=== PATIENT | female | born 1980 | race Caucasian/White ===

== ENCOUNTER → 2017-10-25 | Outpatient (CLI) | payer OTHER | LOC: FIMAGING 09:23 | PROVIDERS: ATTEND Physician Assistant Medical | DX: N83.11 Corpus luteum cyst of right ovary (principal) ==

== ENCOUNTER 2017-12-20 13:43 | Emergency (ER) | payer OTHER ==
[2017-12-20] MEDS ORDERED: NS 500 ML IV ONE (14:07)
[2017-12-20 14:31] LABS: PLATELET COUNT 261 10^3/uL (150-400)
[2017-12-20] MEDS ORDERED: IBUPROFEN 600 MG TAB PO ONE ×2 (15:10→15:12)
--- NOTE | 2017-12-20 15:15 | EDPHY ---
H & P Time Seen by Provider: 12/20/17 14:07 HPI/ROS: HPI Chest pain. 29-year-old female by private vehicle. This patient reports that she was jogging. She reports that while doing that she had sudden onset pain which she describes as being across her back. She describes it as sharp and across the mid to upper back beneath her shoulder blades. She reports that she stop running. She felt a little bit lightheaded. She reports that she started feeling better. She reports that she then started running again and then had pain radiating up from the right upper quadrant of her abdomen up through her right chest. This lasted 5-10 minutes and then subsided. She denies any associated shortness of breath. She had some mild nausea but no vomiting. No cough. No palpitations. She is not in any discomfort now and denies any shortness of breath at this time. She reports that she has had an issue with her gallbladder in the past but could not go into specifics. She does not have any cardiac risk factors. Nonsmoker. No history of diabetes, hyperlipidemia, hypertension. No significant family history. ROS: Constitutional: No fever, no chills. No weakness. Eyes: No discharge. No changes in vision. ENT: No sore throat. No nasal congestion or rhinorrhea. Respiratory: No cough. No shortness of breath. Cardiac: As above, no palpitations. Gastrointestinal: As above, no vomiting, no diarrhea. Genitourinary: No hematuria. No dysuria or increased frequency with urination. Musculoskeletal: As above. No neck pain. No myalgias or arthralgias. Skin: No rashes. Neurological: No headache. No focal weakness or altered sensation. Past medical history: As above. Otherwise, she denies any significant past medical history. Social history: Nonsmoker. No alcohol. Very physically active. Physical Exam: General Appearance: Alert, no distress. This patient is responding to questions appropriately and in full sentences. This patient appears well- hydrated and well-nourished. Eyes: Pupils equal and round no pallor or injection. No lid edema, erythema or injection. Respiratory: There are no retractions, lungs are clear to auscultation with good air movement bilaterally. Cardiovascular: Regular rate and rhythm. No murmur. Chest wall is nontender on palpation. Gastrointestinal: Abdomen is soft with vague and mild right upper quadrant tenderness on palpation, no masses, bowel sounds normal. No focal tenderness at McBurney's point. No Wheatley sign. Neurological: Motor sensory function is grossly intact. Cranial nerves are normal. Gait is normal. Skin: Warm and dry, no rashes. Musculoskeletal: Neck is supple and nontender. Extremities are symmetrical. All joints range without pain or impingement. Psychiatric: No agitation. No depression. Database: EKG: EKG time is 2:16 p.m.; EKG shows a narrow complex normal sinus rhythm with a ventricular rate of 79. The AR, QRS, QT intervals are within normal limits. There are no ST-T wave changes indicative of ischemic or injury pattern. No evidence of right heart strain. No evidence of WPW, Brugada syndrome, hypertrophic cardiomyopathy. Interpreted by me. Imaging: Chest x-ray AP portable; the cardiac mediastinal silhouette is unremarkable. No evidence of infiltrate or pneumothorax. No acute cardiopulmonary disease process noted. Interpreted by me. Right upper quadrant ultrasound: Negative. Results were discussed with staff radiologist Dr. Dhruv Parikh. Procedures: Emergency department course: Triage vital signs reviewed and are normal. She is afebrile. IV was placed. She was placed on a monitor. EKG obtained and reviewed by myself. She is low risk by heart score. 3:15 p.m., patient re-evaluated, resting comfortably at this time. She states she has a mild headache. She will be given 600 mg of ibuprofen. Right upper quadrant ultrasound is pending. Repeat abdominal exam is unchanged from above. Cardiac workup is reassuring. 4:10 p.m., the patient was re-evaluated, resting comfortably at this time. She remains asymptomatic. No chest pain. No abdominal pain. No shortness of breath. Vital signs reviewed and are normal. Results of her ultrasound, additional blood work, liver function studies discussed with her. I discussed admission with her for observation. She does not want to be admitted. She understands the risks of declining admission in my professional opinion. She is requesting discharge. I will have her follow up with her primary care physician tomorrow for re-evaluation. Return to emergency department precautions were thoroughly reviewed with her. All of her questions were answered. She was discharged from the emergency department in good condition. Differential Diagnosis: The differential diagnosis on this patient includes but is not limited to biliary colic, pleurisy. Ureterolithiasis, pulmonary embolism, acute coronary syndrome, pneumothorax, aortic dissection unlikely. This represents a partial list of diagnoses considered. These considerations are based on history, physical exam, past history, reassessment and diagnostic testing. Smoking Status: Never smoked Constitutional: Initial Vital Signs Temperature (C) 36.8 C 12/20/17 13:45 Heart Rate 96 12/20/17 13:45 Respiratory Rate 16 12/20/17 13:45 Blood Pressure 134/84 H 12/20/17 13:45 O2 Sat (%) 98 12/20/17 13:45 O2 Delivery Mode Room Air Allergies/Adverse Reactions: No Known Allergies Allergy (Unverified 12/20/17 13:48) Home Medications: Medication Instructions Recorded NK [No Known Home Meds] 12/20/17 Medical Decision Making - Diagnostics Imaging Results: Imaging Impressions Chest X-Ray 12/20/17 14:07 Impression: Normal chest x-ray. Abdomen Ultrasound 12/20/17 15:10 Impression: A 1.6-cm simple-appearing hepatic cyst right lobe of the liver. Otherwise normal right upper quadrant ultrasound. Results called and discussed with Abdon Valdez M.D., on December at 1614. - Data Points Laboratory Results: Laboratory Results 12/20/17 14:20 12/20/17 14:20 12/20/17 12/20/17 12/20/17 15:27 14:24 14:20 WBC RBC Hgb Hct MCV MCH MCHC RDW Plt Count MPV Neut % (Auto) Lymph % (Auto) [place] % (Auto) Eos % (Auto) Baso % (Auto) Nucleat RBC Rel Count Absolute Neuts (auto) Absolute Lymphs (auto) Absolute Monos (auto) Absolute Eos (auto) Absolute Basos (auto) Absolute Nucleated RBC Immature Gran % Immature Gran # D-Dimer Sodium Potassium Chloride Carbon Dioxide Anion Gap BUN Creatinine Estimated GFR Glucose Calcium Total Bilirubin 1.1 mg/dL mg/dL (0.1-1.4) Conjugated Bilirubin 0.3 mg/dL mg/dL (0.0-0.5) Unconjugated Bilirubin 0.8 mg/dL mg/dL (0.0-1.1) AST 24 IU/L IU/L (14-46) ALT 23 IU/L IU/L (9-52) Alkaline Phosphatase 53 IU/L IU/L (38-126) POC Troponin I 0.00 ng/mL ng/mL (0.00-0.08) Total Protein 7.1 g/dL g/dL (6.3-8.2) Albumin 4.7 g/dL g/dL (3.5-5.0) Lipase 119 IU/L IU/L (23-300) Beta HCG, Qual Urine Color PALE YELLOW Urine Appearance CLEAR Urine pH 5.0 (5.0-7.5) Ur Specific [place] 1.005 (1.002-1.030) Urine Protein NEGATIVE (NEGATIVE) Urine Ketones NEGATIVE (NEGATIVE) Urine Blood 1+ H (NEGATIVE) Urine Nitrate NEGATIVE (NEGATIVE) Urine Bilirubin NEGATIVE (NEGATIVE) Urine Urobilinogen NEGATIVE EU EU (0.2-1.0) Ur Leukocyte Esterase NEGATIVE (NEGATIVE) Urine RBC 1-3 /hpf /hpf (0-3) Urine WBC 1-3 /hpf /hpf (0-3) Ur Epithelial Cells TRACE /lpf /lpf (NONE-1+) Urine Mucus TRACE /lpf /lpf (NONE-1+) Urine Glucose NEGATIVE (NEGATIVE) 12/20/17 12/20/17 12/20/17 14:20 14:20 14:20 WBC RBC Hgb Hct MCV MCH MCHC RDW Plt Count MPV Neut % (Auto) Lymph % (Auto) [place] % (Auto) Eos % (Auto) Baso % (Auto) Nucleat RBC Rel Count Absolute Neuts (auto) Absolute Lymphs (auto) Absolute Monos (auto) Absolute Eos (auto) Absolute Basos (auto) Absolute Nucleated RBC Immature Gran % Immature Gran # D-Dimer < 0.27 ug/mLFEU ug/mLFEU (0.00-0.50) Sodium 139 mEq/L mEq/L (135-145) Potassium 3.7 mEq/L mEq/L (3.3-5.0) Chloride 107 mEq/L mEq/L (97-110) Carbon Dioxide 22 mEq/l mEq/l (22-31) Anion Gap 10 mEq/L mEq/L (6-14) BUN 7 mg/dL mg/dL (7-23) Creatinine 0.6 mg/dL mg/dL (0.6-1.0) Estimated GFR > 60 Glucose 93 mg/dL mg/dL (70-100) Calcium 9.5 mg/dL mg/dL (8.5-10.4) Total Bilirubin Conjugated Bilirubin Unconjugated Bilirubin AST ALT Alkaline Phosphatase POC Troponin I Total Protein Albumin Lipase Beta HCG, Qual NEGATIVE Urine Color Urine Appearance Urine pH Ur Specific [place] Urine Protein Urine Ketones Urine Blood Urine Nitrate Urine Bilirubin Urine Urobilinogen Ur Leukocyte Esterase Urine RBC Urine WBC Ur Epithelial Cells Urine Mucus Urine Glucose 12/20/17 14:20 WBC 8.21 10^3/uL 10^3/uL (3.80-9.50) RBC 4.58 10^6/uL 10^6/uL (4.18-5.33) Hgb 13.7 g/dL g/dL (12.6-16.3) Hct 40.3 % % (38.0-47.0) MCV 88.0 fL fL (81.5-99.8) MCH 29.9 pg pg (27.9-34.1) MCHC 34.0 g/dL g/dL (32.4-36.7) RDW 12.3 % % (11.5-15.2) Plt Count 261 10^3/uL 10^3/uL (150-400) MPV 10.0 fL fL (8.7-11.7) Neut % (Auto) 58.4 % % (39.3-74.2) Lymph % (Auto) 30.5 % % (15.0-45.0) [place] % (Auto) 7.6 % % (4.5-13.0) Eos % (Auto) 2.4 % % (0.6-7.6) Baso % (Auto) 1.0 % % (0.3-1.7) Nucleat RBC Rel Count 0.0 % % (0.0-0.2) Absolute Neuts (auto) 4.80 10^3/uL 10^3/uL (1.70-6.50) Absolute Lymphs (auto) 2.50 10^3/uL 10^3/uL (1.00-3.00) Absolute Monos (auto) 0.62 10^3/uL 10^3/uL (0.30-0.80) Absolute Eos (auto) 0.20 10^3/uL 10^3/uL (0.03-0.40) Absolute Basos (auto) 0.08 10^3/uL 10^3/uL (0.02-0.10) Absolute Nucleated RBC 0.00 10^3/uL 10^3/uL (0-0.01) Immature Gran % 0.1 % % (0.0-1.1) Immature Gran # 0.01 10^3/uL 10^3/uL (0.00-0.10) D-Dimer Sodium Potassium Chloride Carbon Dioxide Anion Gap BUN Creatinine Estimated GFR Glucose Calcium Total Bilirubin Conjugated Bilirubin Unconjugated Bilirubin AST ALT Alkaline Phosphatase POC Troponin I Total Protein Albumin Lipase Beta HCG, Qual Urine Color Urine Appearance Urine pH Ur Specific [place] Urine Protein Urine Ketones Urine Blood Urine Nitrate Urine Bilirubin Urine Urobilinogen Ur Leukocyte Esterase Urine RBC Urine WBC Ur Epithelial Cells Urine Mucus Urine Glucose Medications Given: Discontinued Medications Sodium Chloride (Ns) 500 mls @ 1,000 mls/hr IV EDNOW ONE PRN Reason: Protocol Stop: 12/20/17 14:36 Last Admin: 12/20/17 14:27 Dose: 500 mls Ibuprofen (Motrin) 600 mg PO EDNOW ONE Stop: 12/20/17 15:13 Last Admin: 12/20/17 15:13 Dose: 600 mg Point of Care Test Results: Chemistry 12/20/17 14:24 POC Troponin I 0.00 ng/mL ng/mL (0.00-0.08) Departure - Departure Disposition: Home, Routine, Self-Care Clinical Impression: Chest pain Condition: Good Instructions: Chest Pain (ED) Additional Instructions: Read and follow provided instructions. Follow-up with your primary care physician within 1-2 days for re-evaluation. You should avoid strenuous exercise until cleared by your primary care physician or Cardiology. I have also provided you a referral to our cardiology group. You will have to call their office for appointment. Return to the emergency department for return of pain, lightheadedness, palpitations or other serious concerns. Referrals: EMILE HILL [Primary Care Provider] - As per Instructions [facility] [Provider Group] - As per Instructions
[2017-12-20 16:34] VITALS: BP 106/78
--- NOTE | 2017-12-20 19:54 | CPEKG ---
Test Reason : OPEN Blood Pressure : / mmHG Vent. Rate : 079 BPM Atrial Rate : 077 BPM P-R Int : 138 ms QRS Dur : 086 ms QT Int : 388 ms P-R-T Axes : 071 067 056 degrees QTc Int : 445 ms Sinus rhythm Confirmed by Abdon Valdez ([id number]) on 12/20/2017 7:53:47 PM Referred By: Confirmed By:Abdon Valdez
== END 2017-12-20 16:33 | disposition home or self-care (01) ==
DX: R07.9 Chest pain, unspecified (principal); K76.89 Other specified diseases of liver; E86.9 Volume depletion, unspecified
CPT/HCPCS: 84484-PO

== ENCOUNTER → 2018-06-23 | Outpatient (CLI) | payer OTHER | LOC: FIMAGING 09:05 | PROVIDERS: ATTEND Psychiatry & Neurology Neurology | DX: G24.9 Dystonia, unspecified (principal); R25.1 Tremor, unspecified; R51 Headache; R53.1 Weakness | CPT/HCPCS: 70551-PN ==